=== PATIENT | female | born 1990 | race Two or more races ===

== ENCOUNTER 2021-03-06 09:54 | Emergency (ER) | payer MEDICAID, OTHER ==
[~2021-03-06] VITALS: Ht 167.6 cm; Wt 63.5 kg
[2021-03-06 09:56] VITALS: BP 113/72
[2021-03-06] MEDS ORDERED: KETOROLAC TROMETH 60MG/2ML VIAL IM ONE (11:30)
== END 2021-03-06 12:01 | disposition home or self-care (01) ==
LOC: ER 09:54
DX: S16.1XXA Strain of muscle, fascia and tendon at neck level, initial encounter (principal); S39.012A Strain of muscle, fascia and tendon of lower back, initial encounter; F17.210 Nicotine dependence, cigarettes, uncomplicated; F41.9 Anxiety disorder, unspecified; F32.9 Major depressive disorder, single episode, unspecified; Z88.6 Allergy status to analgesic agent; V43.52XA Car driver injured in collision with other type car in traffic accident, initial encounter; Y93.89 Activity, other specified; Y92.488 Other paved roadways as the place of occurrence of the external cause; Y99.8 Other external cause status
CPT/HCPCS: 72040; 72100; 96372; 99284; J1885

== ENCOUNTER 2021-03-19 17:23 | Emergency (ER) | payer MEDICAID, OTHER ==
[~2021-03-19] VITALS: Ht 167.6 cm; Wt 61.2 kg
[2021-03-19 17:32] VITALS: BP 138/64
== END 2021-03-19 18:58 | disposition left against medical advice (07) ==
LOC: ER 17:23
DX: Z04.3 Encounter for examination and observation following other accident (principal); Z53.21 Procedure and treatment not carried out due to patient leaving prior to being seen by health care provider; Y08.89XA Assault by other specified means, initial encounter; Y93.89 Activity, other specified; Y92.89 Other specified places as the place of occurrence of the external cause; Y99.8 Other external cause status